=== PATIENT | female | born 1940 | race Caucasian/White ===

== ENCOUNTER → 2021-09-29 | Outpatient (CLI) | payer MEDICARE ==
[~2021-09-29] MED LIST: AMOXIL SUS250 MG/5 M PO; ANTIVERT 25MG T25 MG PO; XANAX 0.25 MG0.25 MG PO
== END ==
LOC: KOH-I 10:57
DX: M54.9 Dorsalgia, unspecified (principal); M48.54XA Collapsed vertebra, not elsewhere classified, thoracic region, initial encounter for fracture; M41.9 Scoliosis, unspecified; M51.36 Other intervertebral disc degeneration, lumbar region; M43.8X6 Other specified deforming dorsopathies, lumbar region
CPT/HCPCS: 72070; 72100

== ENCOUNTER → 2021-10-13 | Outpatient (CLI) | payer MEDICARE | LOC: KOH-I 08:21 | DX: M51.36 Other intervertebral disc degeneration, lumbar region (principal); M51.34 Other intervertebral disc degeneration, thoracic region; M43.8X4 Other specified deforming dorsopathies, thoracic region; R93.7 Abnormal findings on diagnostic imaging of other parts of musculoskeletal system; M51.26 Other intervertebral disc displacement, lumbar region | CPT/HCPCS: 72146; 72148 ==

== ENCOUNTER → 2021-11-06 | Outpatient (CLI) | payer MEDICARE | LOC: EXRD 11-01 10:30 | DX: M81.0 Age-related osteoporosis without current pathological fracture (principal) | CPT/HCPCS: 77080 ==